=== PATIENT | male | born 1990 | race Caucasian/White ===

== ENCOUNTER 2017-01-19 20:38 | Emergency (ER) | payer BC, OTHER ==
[2017-01-19 21:08] VITALS: BP 135/89
--- NOTE | 2017-01-19 21:27 | EDM.PDOC ---
ED HPI GENERAL MEDICAL PROBLEM - General Chief Complaint: Upper Extremity Injury/Pain Stated Complaint: right side shoulder pain Time Seen by Provider: 01/19/17 21:15 Source of Information: Reports: Patient, RN Notes Reviewed History Limitations: Reports: No Limitations - History of Present Illness INITIAL COMMENTS - FREE TEXT/NARRATIVE: 26 year old male presents to the ED with right shoulder pain. He injured the arm while playing flag football today. No numbness or tingling. He has deformity to the shoulder. No previous history of dislocation or fracture to the right clavicle or shoulder. No additional injury. Right Shoulder Pain Score (Numeric/FACES): 4 - Related Data Allergies Allergy/AdvReac Type Severity Reaction Status Date / Time No Known Allergies Allergy Verified 01/19/17 21:08 Home Meds: Home Meds Acetaminophen/oxyCODONE [Percocet 325-5 MG] 1 - 2 tab PO Q6H #15 tablet [Rx] Past Medical History - Past Health History Medical/Surgical History: Denies Medical/Surgical History HEENT History: Reports: Impaired Vision Other HEENT History: wears glasses Social & Family History - Tobacco Use Smoking Status *Q: Never Smoker Second Hand Smoke Exposure: No - Caffeine Use Caffeine Use: Reports: Coffee, Energy Drinks, Soda, Tea - Alcohol Use Days Per Week of Alcohol Use: 2 Number of Drinks Per Day: 4 Total Drinks Per Week: 8 - Recreational Drug Use Recreational Drug Use: No - Living Situation & Occupation Living situation: Reports: Single, Other Occupation: Employed Review of Systems - Review of Systems Review Of Systems: See Below Musculoskeletal: Reports: Shoulder Pain Skin: Denies: Wound Neurological: Reports: No Symptoms. Denies: Numbness, Tingling, Weakness ED EXAM, GENERAL - Physical Exam Exam: See Below Exam Limited By: No Limitations General Appearance: Alert, WD/WN, No Apparent Distress Respiratory/Chest: No Respiratory Distress, Lungs Clear Cardiovascular: Regular Rate, Rhythm Extremities: Other (deformity to right shoulder. No bony point tenderness of the clavicle. Reduced ROM to right shoulder. Neurovascular status intact. ) Neurological: Alert, Oriented, No Motor/Sensory Deficits Skin Exam: Warm, Dry, Intact Course - Vital Signs Last Recorded V/S: Last Vital Signs Temp 98.4 F 01/19/17 21:06 Pulse 78 01/19/17 21:06 Resp 19 01/19/17 21:06 BP 135/89 01/19/17 21:06 Pulse Ox 98 01/19/17 21:06 - Orders/Labs/Meds Orders: Active Orders 24 hr Category Date Time Status Shoulder Comp Rt [CR] Stat Exams 01/19/17 21:25 Taken - Re-Assessments/Exams Free Text/Narrative Re-Assessment/Exam: X-ray of right shoulder reveals significant AC joint separation. No fractures. Radiologist report is pending. Will place in sling and refer to Dr. Gautam. He was educated on supportive care. Prescription provided for Percocet for pain. Discharge instructions as documented. Departure - Departure Time of Disposition: 22:36 Disposition: Home, Self-Care 01 Condition: Good Clinical Impression: Acromioclavicular joint separation Qualifiers: Encounter type: initial encounter Laterality: right Qualified Code(s): S43.101A - Unspecified dislocation of right acromioclavicular joint, initial encounter - Discharge Information Prescriptions: Acetaminophen/oxyCODONE [Percocet 325-5 MG] 1 - 2 tab PO Q6H #15 tablet Instructions: Acromioclavicular Separation With Rehab-SportsMed Referrals: PCP,None [Primary Care Provider] - Forms: ED Department Discharge, ED Return to Work/School Form Additional Instructions: Rest and ice No heavy lifting Wear sling as tolerated Call the clinic tomorrow to set up an appointment with Dr. Gautam within the the next week. Call [phone] to schedule Ibuprofen 800mg 3 times a day as needed for pain Percocet 1-2 tabs every 6 hours as needed for more severe pain No driving for at least 6-8 hours after taking Percocet - My Orders Last 24 Hours: My Active Orders 01/19/17 21:25 Shoulder Comp Rt [CR] Stat - Assessment/Plan Last 24 Hours: My Active Orders 01/19/17 21:25 Shoulder Comp Rt [CR] Stat
--- NOTE | 2017-01-20 11:57 | CR ---
Right shoulder: Three views of the right shoulder were obtained. Comparison: No prior study. Acromioclavicular separation is seen. Glenohumeral joint is unremarkable. No acute fracture or other bony abnormality is seen. Impression: 1. Acromioclavicular separation. Diagnostic code #3
== END 2017-01-19 22:50 | disposition home or self-care (01) ==
LOC: JD.ED 20:38
DX: S43.101A Unspecified dislocation of right acromioclavicular joint, initial encounter (principal); X58.XXXA Exposure to other specified factors, initial encounter; Y93.61 Activity, american tackle football
CPT/HCPCS: 73030-26-RT; 73030-RT; 99283; 99284